=== PATIENT | female | born 2000 | race Caucasian/White ===

== ENCOUNTER 2021-09-14 16:43 | Emergency (ER) | payer OTHER, SELFPAY ==
[2021-09-14 17:00] VITALS: BP 121/69; PULSE 88; RESP 18; TEMP 37.2; O2SAT 100
--- NOTE | 2021-09-14 17:33 | ED.SKABFB ---
HPI - Skin/Abscess/Foreign Bdy General Chief complaint: Skin/Abscess/Foreign Body Stated complaint: Insect Bite Time Seen by Provider: 09/14/21 17:33 Source: patient, RN notes reviewed and old records reviewed Mode of arrival: ambulatory Limitations: no limitations History of Present Illness HPI narrative: 21 year old male presents to express care with complaints of having insect bite to her left medial distal thigh over the weekend that was small red area that she thinks is spider bite.. Patient reports now area has increased in size with size 7cm in diameter and feels warm to touch. Patient verbalizes some burning discomfort to area which she rates as 5/10, denies any known fevers chills or sweats. MD complaint: rash and other (cellulitis) Related Data Home Medications Medication Instructions Recorded Confirmed dicyclomine 10 mg capsule 10 mg PO DIRECTED 09/14/21 09/14/21 famotidine 20 mg tablet 20 mg PO DIRECTED 09/14/21 09/14/21 Allergies Allergy/AdvReac Type Severity Reaction Status Date / Time cefprozil Allergy Mild Rash Verified 09/14/21 17:03 Review of Systems Review of Systems: CONSTITUTIONAL: Denies fever, chills, or sweats. EYES: Denies visual changes, redness, or discharge. ENT: Denies rhinorrhea, congestion, sore throat, or otalgia. CARDIOVASCULAR: Denies chest pain, palpitations, or edema. RESPIRATORY: Denies cough or dyspnea. GASTROINTESTINAL: Denies abdominal pain, nausea, vomiting, or diarrhea. GENITOURINARY: Denies dysuria or hematuria. SKIN: Positive for increase red rash around bug bite that is warm to touch with burning discomfort. MUSCULOSKELETAL: Denies back pain, joint pain, or myalgia. NEUROLOGIC: Denies headache, numbness, or weakness. PSYCHIATRIC: Denies anxiety or depression. [facility] Past Medical History Medical History (Updated 09/15/21 @ 00:00 by Marlena Smith) Asthma Surgical History Surgical History (Updated 09/14/21 @ 17:36 by Lakeisha Vance NP) History of cochlear implant History of tonsillectomy Comments At time of signature, agree with nursing past medical, surgical, social and family history. There is no relevant family history pertinent to the presenting complaint Exam Narrative: GENERAL: Well-appearing, well-nourished, and in no acute distress. HEAD: Normocephalic, atraumatic. EYES: PERRLA and EOMI. ENT: Nares clear, no rhinorrhea or epistaxis. Mucous membranes moist. patient has bilateral cochlear implants, throat pink with no lesions or exudates tonsils absent NECK: Supple.no lymphadenopathy CHEST: Clear to auscultation. No respiratory distress.SAO2 100% on room air HEART: Regular rate and rhythm. No murmur heard. Normal peripheral pulses. ABDOMEN: Soft, nontender, nondistended, normal active bowel sounds. EXTREMITIES: Normal range of motion. No edema. SKIN: Warm, dry, 7cm red warm tissue area surround initial bug bite which occurred on Monday with increased redness today and in discomfort.Area to left distal inner thigh NEURO: No focal deficits. Alert and oriented x3. Course Course Level of Care: Express Care Visit Vital Signs Vital signs: Vital Signs Temperature 37.2 C 09/14/21 17:00 Pulse Rate 88 09/14/21 17:00 Respiratory Rate 18 09/14/21 17:00 Blood Pressure 121/69 09/14/21 17:00 Pulse Oximetry 100 09/14/21 17:00 Oxygen Delivery Room Air 09/14/21 17:00 Temperature 37.2 C 09/14/21 17:00 Pulse Rate 88 09/14/21 17:00 Respiratory Rate 18 09/14/21 17:00 Blood Pressure 121/69 09/14/21 17:00 Pulse Oximetry 100 09/14/21 17:00 Oxygen Delivery Room Air 09/14/21 17:00 MDM - Skin/Abscess/Foreign Bdy Differential Diagnosis Differential diagnosis: Likely abscess of skin or subcutaneous tissue, cellulitis, insect bites and contact dermatitis Medical Records Attestation: I reviewed the patient's medical records. Critical Care Time Critical Care Time Critical Care Time: No Discharge Plan Discharge Cl
== END 2021-09-14 18:01 | disposition home or self-care (01) ==
PROVIDERS: Emergency Provider Registered Nurse; PCP Pediatrics Pediatric Emergency Medicine
DX: L03.116 Cellulitis of left lower limb (principal); S70.362A Insect bite (nonvenomous), left thigh, initial encounter; W57.XXXA Bitten or stung by nonvenomous insect and other nonvenomous arthropods, initial encounter; J45.909 Unspecified asthma, uncomplicated; Z96.21 Cochlear implant status
CPT/HCPCS: 99203; G0463

== ENCOUNTER 2022-02-18 09:33 | Emergency (ER) | payer OTHER, SELFPAY ==
[2022-02-18 09:37] VITALS: BP 137/76; PULSE 75; RESP 16; TEMP 36.9; O2SAT 100
--- NOTE | 2022-02-18 09:43 | ED.LOWEXIN ---
HPI - Extremity Injury (Lower) General Chief Complaint: Extremity Problem,Nontraumatic Stated Complaint: left foot big toe ingrown toenail Time Seen by Provider: 02/18/22 09:53 Source: patient and RN notes reviewed Mode of arrival: ambulatory Limitations: no limitations History of Present Illness HPI Narrative: 21-year-old female presents to the [facility] with left great toe pain, redness and swelling. reports an ingrown toenail. Has had him in the past. Reports drainage over the last couple days. No drainage or fluctuation seen on exam. The patient states this started 2 and half weeks ago denies fevers. Redness is just to the lateral aspect of the left great toe. Redness is not circumferential. Related Data Home Medications Medication Instructions Recorded Confirmed celecoxib 200 mg capsule (Celebrex) 200 mg PO BID 02/18/22 02/18/22 Allergies Allergy/AdvReac Type Severity Reaction Status Date / Time cefprozil Allergy Mild Rash Verified 02/18/22 09:50 Review of Systems Review of Systems: All systems reviewed & are unremarkable except as noted in HPI and below Constitutional: Constitutional: Reports no additional constitutional complaints, Denies chills and Denies fever(s) Eyes: Eyes: Reports no additional eye complaints ENT: Reports system reviewed and no additional complaints, except as documented Cardiovascular: Cardiovascular: Reports no additional cardiovascular complaints Respiratory: Respiratory: Reports no additional respiratory complaints Gastrointestinal: Gastrointestinal: Reports no additional gastrointestinal complaints Musculoskeletal: Musculoskeletal: Reports as per HPI Integumentary/Breasts: Skin/Breast: Reports as per HPI Neurologic: Reports system reviewed and no additional complaints, except as documented Psychiatric: Psychiatric: Reports no additional psychiatric complaints Allergic/Immunologic: Allergic/Immunologic: Reports no additional allergic/immunologic complaints [facility] Past Medical History Medical History (Updated 02/18/22 @ 09:58 by Yasmine Avila APRN) Asthma Surgical History Surgical History History of cochlear implant History of tonsillectomy Comments At the time of my signature, I reviewed and agree with the nursing past medical, surgical, social, and family history. There is no relevant family history pertinent to the patient complaint. Exam Const: General: healthy appearing, no acute distress, alert and well nourished Nutritional Appearance: well nourished Orientation/consciousness: patient oriented x3 Limitations: no limitations HENMT: Head: normal to inspection Ears: external ears normal Eyes: General: appearance normal, both eyes and all related structures Pupils: Equal, round and reactive pupils present Neck: Neck: normal visual inspection, no lymphadenopathy and no meningeal signs Chest: Chest palpation & inspection: normal inspection of the chest Resp: Effort & Inspection: normal respiratory effort and no use of accessory muscles Auscultation: clear to auscultation bilaterally, no crackles, no rales, no rhonchi and no wheezes Cardio: Rate: regular rate Rhythm: regular rhythm Skin: General skin exam: normal color Rashes: no rashes Wounds: no wounds Neuro: General: patient oriented x3, moves all extremities, no meningeal signs and no focal motor deficits Cranial nerves: Yes Equal, round and reactive pupils present Speech: normal speech Gait exam (Neuro): Normal gait present Extrem: General: normal to inspection, full ROM and capillary refill normal Left lower extremity: foot Details: normal capillary refill, tenderness Location: of the great toe, toes with normal ROM and other; no abrasions, no lacerations and no ecchymosis Ankle/foot/toe images: 1. erythema swelling. No fluctuant area. Not circumferential. Psych: Appearance: grossly normal and well kempt Mental
== END 2022-02-18 10:04 | disposition home or self-care (01) ==
PROVIDERS: Emergency Provider Nurse Practitioner; PCP Physician Assistant
DX: L03.032 Cellulitis of left toe (principal); J45.909 Unspecified asthma, uncomplicated; Z96.21 Cochlear implant status
CPT/HCPCS: 99213; G0463

== ENCOUNTER 2023-02-05 15:21 | Emergency (ER) | payer OTHER, SELFPAY ==
[2023-02-05 15:26] VITALS: BP 138/90; PULSE 92; RESP 20; TEMP 36.8; O2SAT 100
--- NOTE | 2023-02-05 16:21 | ED.EXTPRO ---
HPI - Extremity Problem General Chief complaint: Extremity Problem,Nontraumatic Stated complaint: pinky toe on right foot inflamed Time Seen by Provider: 02/05/23 16:05 Source: patient, RN notes reviewed and old records reviewed Mode of arrival: ambulatory Limitations: no limitations History of Present Illness HPI Narrative: 22-year-old female who presents to [facility] with complaints of pain to the medial aspect of her right 5th toe with lesion on toe noted for several months.. Patient has some redness,round 0.25cm lesion on inner aspect of right 5th toe that appears to be wart. Patient reports she has not tried any OTC products on lesion or taken any medications for her discomfort. Patient states that she wears steel toed shoes at work and area is irritating after being on feet all day.. MD Complaint: other (lesion 5th toe ) Onset (ago): month(s) Severity scale (1-10): 4 Exacerbating factors: walking Related Data Allergies Allergy/AdvReac Type Severity Reaction Status Date / Time cefprozil Allergy Mild Rash Verified 02/18/22 09:50 Review of Systems Review of Systems: CONSTITUTIONAL: Denies fever, chills, or sweats. EYES: Denies visual changes, redness, or discharge. ENT: Denies rhinorrhea, congestion, sore throat, or otalgia. CARDIOVASCULAR: Denies chest pain, palpitations, or edema. RESPIRATORY: Denies cough or dyspnea. GASTROINTESTINAL: Denies abdominal pain, nausea, vomiting, or diarrhea. GENITOURINARY: Denies dysuria or hematuria. SKIN: Denies rash or itching.0.25 cm wart noted to medial aspect of 5th toe some redness to surrounding tissue MUSCULOSKELETAL: Denies back pain, joint pain, or myalgia. NEUROLOGIC: Denies headache, numbness, or weakness. PSYCHIATRIC: Denies anxiety or depression. All systems reviewed & are unremarkable except as noted in HPI and below [facility] Past Medical History Medical History (Updated 02/06/23 @ 00:00 by Marlena Smith) Asthma Surgical History Surgical History History of cochlear implant History of tonsillectomy Social History Social History (Updated 02/06/23 @ 23:19 by Lakeisha Vance NP) Smoking status: Never smoker Alcohol intake: current Alcohol use details: social Substance use type: does not use Living arrangements: with family Gender identity (if verbalized by the patient): Female Comments At time of signature, agree with nursing past medical, surgical, social and family history. There is no relevant family history pertinent to the presenting complaint Exam Narrative: GENERAL: Well-appearing, well-nourished, and in no acute distress. HEAD: Normocephalic, atraumatic. EYES: PERRLA and EOMI. ENT: Nares clear, no rhinorrhea or epistaxis. Mucous membranes moist. NECK: Supple.no lymphadenopathy CHEST: Clear to auscultation. No respiratory distress. SAO2 100% on room air HEART: Regular rate and rhythm. No murmur heard. Normal peripheral pulses. ABDOMEN: Soft, nontender, nondistended, normal active bowel sounds. EXTREMITIES: Normal range of motion. No edema. SKIN: Warm, dry, no rash. 0.25 round lesion to the medial aspect of right 5th toe with some surrounding redness, patient admits to picking at lesion, no drainage or bleeding noted is tender. NEURO: No focal deficits. Alert and oriented x3. Course Course Emergency Course: Patient is aware of diagnosis, understands and agrees to treatment plan.? Anticipatory guidance given.? Patient agrees to follow-up as directed and is aware of reasons to seek care at the emergency department. Portions of this record may have been created with voice recognition software Level of Care: Express Care Visit Vital Signs Vital signs: Vital Signs Temperature 36.8 C 02/05/23 15:26 Pulse Rate 92 02/05/23 15:26 Respiratory Rate 20 02/05/23 15:26 Blood Pressure 138/90 02/05/23 15:26 Pulse Oximetry 100 02/05/23 15:26 Oxygen Delivery Room Air
== END 2023-02-05 16:55 | disposition home or self-care (01) ==
PROVIDERS: Emergency Provider Registered Nurse; PCP Physician Assistant
DX: B07.9 Viral wart, unspecified (principal); J45.909 Unspecified asthma, uncomplicated
CPT/HCPCS: 99213; G0463

== ENCOUNTER 2023-06-12 18:10 | Emergency (ER) | payer OTHER, SELFPAY ==
[2023-06-12 18:16] VITALS: BP 145/81; PULSE 80; RESP 20; TEMP 36.8; O2SAT 100
--- NOTE | 2023-06-12 18:38 | ED.GENADULT ---
HPI - General Adult General Chief complaint: Upper Respiratory Infection Stated complaint: Sore Throat Source: patient, RN notes reviewed and old records reviewed Mode of arrival: ambulatory Limitations: no limitations History of Present Illness HPI narrative: 23-year-old female presents to [facility] Care with complaint of sore throat that started Monday. Patient states that last night had low-grade fever of 100. Patient denies any other symptoms. Patient states taking Tylenol and ibuprofen with little relief. Related Data Home Medications Medication Instructions Recorded Confirmed cetirizine 10 mg tablet 10 mg PO DAILY 06/12/23 06/12/23 fluticasone propionate 50 See Rx Instructions .Route .COMPLEX 06/12/23 06/12/23 mcg/actuation nasal spray,suspension Allergies Allergy/AdvReac Type Severity Reaction Status Date / Time cefprozil Allergy Mild Rash Verified 06/12/23 18:18 Review of Systems Constitutional: Constitutional: Reports no additional constitutional complaints, Denies body ache(s), Denies chills, Denies fatigue, Reports fever(s) and Denies headache(s) Eyes: Eyes: Reports no additional eye complaints and Denies blurry vision ENT: Reports system reviewed and no additional complaints, except as documented, Denies vertigo, Denies dizziness, Denies ear discharge, Denies otalgia, Denies facial pain, Denies headache(s), Denies nasal congestion, Denies nasal discharge, Denies sinus pain, Denies sinus pressure and Reports sore throat Cardiovascular: Cardiovascular: Reports no additional cardiovascular complaints, Denies chest pain, Denies chest pain at rest, Denies rapid heart rate and Denies dyspnea Respiratory: Respiratory: Reports no additional respiratory complaints, Denies chest congestion, Denies cough, Denies pain on inspiration, Denies pain with cough and Denies dyspnea Gastrointestinal: Gastrointestinal: Denies abdominal pain, Denies diarrhea, Denies nausea and Denies vomiting Integumentary/Breasts: Skin/Breast: Denies rash Neurologic: Reports system reviewed and no additional complaints, except as documented, Denies vertigo, Denies dizziness and Denies headache(s) Endocrine: Endocrine: Denies fatigue [facility] Past Medical History Medical History Asthma Surgical History Surgical History History of cochlear implant History of tonsillectomy Social History Social History Smoking status: Never smoker Alcohol intake: current Alcohol use details: social Substance use type: does not use Living arrangements: with family Gender identity (if verbalized by the patient): Female Comments At the time of my signature, I reviewed and agree with the nursing past medical, surgical, social, and family history. There is no relevant family history pertinent to the patient complaint. Exam Const: General: cooperative, healthy appearing, no acute distress and well nourished Nutritional Appearance: well nourished Orientation/consciousness: patient oriented x3 Limitations: no limitations HENMT: Head: normal to inspection and normocephalic Ears: external ears normal, TM's normal bilaterally, EAC's normal and mastoids normal Face/Nose/Sinus: normal facial exam Face and sinus: normal facial exam Mouth: Yes Normal oral and palatal mucosa present, Yes oropharynx normal and Yes moist mucous membranes Throat: posterior oropharynx normal, tonsils normal, uvula midline, normal tonsils, no peritonsillar masses, normal posterior oropharynx, no postnasal drainage and no uvular edema Eyes: General: appearance normal, both eyes and all related structures Sclera: sclerae normal Pupils: Equal, round and reactive pupils present Resp: Effort & Inspection: normal respiratory effort, able to speak in complete sentences, no audible wheezes, no cough, no respi
== END 2023-06-12 18:45 | disposition home or self-care (01) ==
PROVIDERS: Emergency Provider Registered Nurse; PCP Physician Assistant
DX: J02.9 Acute pharyngitis, unspecified (principal); J45.909 Unspecified asthma, uncomplicated; Z96.21 Cochlear implant status
CPT/HCPCS: 87081; 87880; 99213; G0463